=== PATIENT | male | born 1940 | race Caucasian/White ===

== ENCOUNTER → 2023-08-23 08:33 | Outpatient (REF) | payer MEDICARE, OTHER, SELFPAY | LOC: RCS 08:33 | PROVIDERS: ATTENDING PHYSICIAN Internal Medicine; FAMILY PHYSICIAN Internal Medicine | DX: R42 Dizziness and giddiness (principal) | CPT/HCPCS: 93225; 93226 ==

== ENCOUNTER 2024-09-04 21:00 | Emergency (ER) | payer MEDICARE, OTHER, SELFPAY ==
[2024-09-04 21:02] VITALS: BP 196/78
[2024-09-04 21:25] VITALS: BP 177/76
--- NOTE | 2024-09-04 21:30 | ED.GENMED ---
History of Present Illness
General
Chief Complaint: Chest Pain
Source: patient and family
Exam Limitations: none
Time Seen by Provider: 09/04/24 21:21
Nursing documentation reviewed up to this point in time: agreed with
History of Present Illness
History of Present Illness:
81-year-old male presents emergency department due to chest tightness, headache near syncope episode, as well as palpitations.
Past History
Past History
ED Past Medical History: HTN and Hypercholesterolemia
ED Past Surgical History: Appendectomy, Bowel resection (From Diverticulitis) and Orthopedic (Right knee surgery)
Social History
Tobacco: Non-smoker
Alcohol: Occasional
Personal:
Living: with family
Review of Systems
Review of Systems
Allergies reviewed?: Yes
All Other Systems: Not applicable
Constitutional: Reports no symptoms
EENT: Reports no symptoms
Respiratory: Reports no symptoms
Cardiac: Reports chest pain and palpitations
ABD/GI: Reports no symptoms
: Reports no symptoms
Musculoskeletal: Reports no symptoms
Skin: Reports no symptoms
Neurological: Reports headache and numbness
Endocrine: Reports no symptoms
Hematologic/Lymphatic: Reports no symptoms
Psychiatric: Reports no symptoms
Phy Exam
Physical Exam
Physical Exam:
Physical Exam
General: no apparent distress, not acutely ill
Neck: supple. no meningeal signs. normal posterior pharynx
Heart: s1/s2 regular rate and rhythm, no murmur. equal radial
pulses.
HEENT: Pupils equal round reactive to light, EOMI
Lungs: no acute respiratory distress. clear bilaterally
Abdomen: normal bowel sounds. not tender. no CVAT
Neuro: alert and oriented. no focal neurological deficits cranial nerves II through XII intact
Skin: no rash
Psychiatric: well kept. interactive and cooperative
Extremities: no edema. no calf tenderness. negative homans. good distal pulses
Scores
Heart Score for Chest Pain Patients
STEMI patient?: No
History: Slightly or Non-Suspicious
ECG: Nonspecific Repolarization
Age: >/= 65 years
Risk Factors: 1 or 2 Risk Factors
Troponin: </= Normal Limit
Heart Score for Chest Pain Patients: 4
Heart Score Risk: 20.3% MACE over next 6 weeks
Course
Orders/Labs/Results
Orders:
Orders
09/04/24 21:01
ECG [Electrocardiogram (*1)] Urgent
Reason for Study: Chest Pain
EKG- Treatment ONCE
09/04/24 21:32
Complete Blood Count/With Diff Urgent
Comprehensive Metabolic Panel Urgent
Troponin I Urgent
09/04/24 22:27
CT Head W/o Iv Contrast Urgent
Comment:
Reason For Exam: headache
Abnormal Lab Results
09/04/24
21:32
Absolute Lymphs (auto) 1.1 L 10^3/uL
(1.2-3.4)
Lymphocytes % 15.5 L %
(20.5-51.1)
BUN 29 H mg/dl
(9-20)
Glucose 142 H mg/dl
(70-99)
09/04/24 21:32
09/04/24 21:32
Vital Signs
Initial and Last Documented VS:
Initial Vital Signs
Temp Pulse Resp BP Pulse Ox
97.9 F 75 16 196/78 98
09/04/24 21:02 09/04/24 21:02 09/04/24 21:02 09/04/24 21:02 09/04/24 21:02
Last Documented Vital Signs
Temp Pulse Resp BP Pulse Ox
97.9 F 57 16 174/83 94
09/04/24 21:02 09/05/24 01:00 09/05/24 00:45 09/05/24 01:00 09/05/24 01:00
MDM/Problems Addressed
Differential Diagnosis Includes:
ACS, PE, dysrhythmia
MDM/Problems Addressed:
83-year-old male with palpitations, chest pressure over the past several days to 1 week. He denies any chest pressure at this time. Troponin negative. EKG shows right bundle branch block, similar to what patient states his EKG at [facility]. Do
not suspect ACS or PE. Patient had multiple PVCs. Stable for discharge follow-up with cardiology. He has a Holter monitor on Monday. Chest pain hotline activated.
Chronic conditions affecting care: HTN
Acute Exacerbation and/or Progression of Chronic Illness: HTN
*Radiology
Radiology exam reviewed: radiology read reviewed (CT head no acute findings)
*Pulse Oximetry
Patient hypoxic: no
*EKG
Interpreted by ED Provider?: Yes
EKG Intrepretation Date: 09/04/24
EKG Intrepretation Time: 21:05
Interpretation: abnormal
Comparison EKG: changes noted
Heart Rate: 79
Rate: normal
Rhythm: sinus
[place]: normal axis
Interval: normal interval
QRS Pattern: right bundle branch block
Ischemia: no ischemia
*Line Construction Engineer Interpretation
Rate: normal
Interpretation: normal
Heart Rate: 75
Rhythm: sinus
*Critical Care Note
Total Time (30-74mins, 75-104mins- exclusive of procedures): Not Applicable
Data Reviewed
Review of Other/Old Records Reveals: Operative Reports (cardiac cath 2019: non obstructive coronary artery disease)
Source: records
Patient Management
Social determinants of health affecting care: Living situation and Strong social support
Escalation/DeEscalation of care consider admission/obs:
admit not indicated
ED Attending Note
-
Portions of this chart may have been created with voice recognition software.� Occasional wrong word or��sound alike� substitutions may have occurred due to the inherent limitations of voice recognition software.
Discharge Plan
Departure
Patient Disposition: Home (Routine Discharge)
Date of Disposition: 09/05/24
Time of Disposition: 00:35
Patient with high blood pressure during this ER visit?: Yes
Condition: Good
Discharge Problem:
Chest pain
Instructions: Chest Pain CBC Follow Up, BLOOD PRESSURE
Prescriptions:
No Action
multivitamin 1 EACH tablet
1 ea PO DAILY
diphenhydramine HCl [Banophen] 50 MG capsule
50 mg PO HSPRN PRN (Reason: sleep)
meloxicam 15 MG tablet
15 mg PO DAILY PRN (Reason: pain)
ibuprofen [Advil Liqui-Gel] 200 MG capsule
200 mg PO Q6HPRN PRN (Reason: pain)
acyclovir [Zovirax] 400 MG tablet
400 mg PO DAILY PRN (Reason: fever blister)
aspirin [Adult Aspirin Regimen] 81 MG tablet,delayed release (DR/EC)
81 mg PO DAILY
doxazosin 8 MG tablet
8 mg PO DAILY
temazepam 15 MG capsule
15 mg PO HSPRN PRN (Reason: sleep)
simvastatin 20 MG tablet
20 mg PO DAILY
lisinopril 5 MG tablet
5 mg PO DAILY
fish,bora,flax oils-[id number] [[place] 3-6-9] 1,200 MG capsule
1,200 mg PO DAILY
Referrals:
Lamont Corado MD [Family Provider] -
Activity Restrictions/Additional Instructions:
Follow up with cardiology Monday as scheduled
Interventions
Interventions:
*Risk Screen - Suicide Last Done: 09/04/24 21:02
*General Assessment Last Done: 09/04/24 21:02
*Neglect/Abuse Screening Last Done: 09/04/24 21:02
*ED- Fall Risk Assessment Last Done: 09/05/24 01:44
*ED COVID-19 Vaccine History Last Done: 09/05/24 01:44
*Nursing Disposition Last Done: 09/05/24 01:44
ED- Cardiac Assessment Last Done: 09/04/24 21:44
Discharge Date and Time
Discharge Date/Time: 09/05/24 01:30
Print Language: [place]ING[place]
[2024-09-04 21:43] VITALS: BMI 21.7
[2024-09-04 21:45] LABS: % Basophils 0.3 % (0-2); % Eosinophils 1.8 % (0-6); % Immature Granulocytes 0.3 % (0-0.5); % Lymphocytes 15.5 % (20.5-51.1); % Monocytes 7.1 % (1.7-9.3); Absolute Eosinophils 0.1 10^3/uL (0-0.7); Absolute Lymphocytes 1.1 10^3/uL (1.2-3.4); Absolute Monocytes 0.5 10^3/uL (0.1-0.6); Absolute Neutrophils 5.1 10^3/uL (1.4-6.5); Hematocrit 45.3 % (39.0-52.0); Hemoglobin 16.2 g/dL (13.0-18.0); Mean Corp Hgb Conc. 35.8 g/dL (33.0-37.0); Mean Corpuscular Volume 86.8 fL (80.0-94.0); Mean Platelet Volume 9.5 fL (7.4-10.4); Nucleated Red Blood Cells % 0 % (-); Platelet Count 222 10^3/uL (130-400); Red Blood Cell Count 5.22 10^6/uL (4.70-6.10); Red Cell Dist. Width 12.5 % (11.5-14.5); White Blood Cell Count 6.8 10^3/uL (4.8-10.8)
[2024-09-04 22:00] VITALS: BP 146/69
[2024-09-04 22:02] LABS: ALT (SGPT) 25 U/L (0-50); AST (SGOT) 24 U/L (17-59); Albumin 4.5 g/dl (3.5-5.0); Alkaline Phosphatase 45 U/L (38-126); Blood Urea Nitrogen 29 mg/dl (9-20); Calcium 9.8 mg/dl (8.4-10.2); Carbon Dioxide 25 mmol/L (22-30); Chloride 106 mmol/L (98-107); Estimated Creatinine Clearance 55 ml/min; Glucose 142 mg/dl (70-99); Potassium 3.8 mmol/L (3.5-5.1); Sodium 141 mmol/L (135-145); Total Bilirubin 0.5 mg/dl (0.2-1.3); Total Protein 7.2 g/dl (6.3-8.2); eGFR > 60.00
[2024-09-04 22:06] LABS: Troponin I < 0.012 ng/ml
[2024-09-04 23:18] VITALS: BP 176/75
[2024-09-05] VITALS: BP 164/86
[2024-09-05 01:00] VITALS: BP 174/83
== END 2024-09-05 01:30 | disposition home or self-care (01) ==
LOC: EMR 21:00
PROVIDERS: EMERGENCY PHYSICIAN Emergency Medicine; FAMILY PHYSICIAN Internal Medicine
DX: R07.89 Other chest pain (principal); R51.9 Headache, unspecified; R55 Syncope and collapse; R00.2 Palpitations; I10 Essential (primary) hypertension; E78.00 Pure hypercholesterolemia, unspecified; I45.10 Unspecified right bundle-branch block
CPT/HCPCS: 99284; 70450; 80053; 84484; 85025; 93005

== ENCOUNTER → 2024-09-25 08:47 | Outpatient (REF) | payer MEDICARE, OTHER, SELFPAY | LOC: HWRAD 08:47 | PROVIDERS: ATTENDING PHYSICIAN Nurse Practitioner; FAMILY PHYSICIAN Internal Medicine | DX: I49.3 Ventricular premature depolarization (principal); R55 Syncope and collapse; I10 Essential (primary) hypertension; H53.8 Other visual disturbances | CPT/HCPCS: 93880 ==

== ENCOUNTER → 2024-10-01 07:35 | Outpatient (REF) | payer MEDICARE, OTHER, SELFPAY | LOC: RCS 07:35 | PROVIDERS: ATTENDING PHYSICIAN Nurse Practitioner; FAMILY PHYSICIAN Internal Medicine | DX: R55 Syncope and collapse (principal); I10 Essential (primary) hypertension; H53.8 Other visual disturbances; I49.3 Ventricular premature depolarization | CPT/HCPCS: 78452; 93017; A9500 ==